=== PATIENT | male | born 1980 | race Caucasian/White ===

== ENCOUNTER 2019-10-22 09:48 | Emergency (ER) | payer BC ==
[~2019-10-22] VITALS: Ht 180.3 cm; Wt 70.9 kg
--- NOTE | 2019-10-22 10:41 | NUR ---
PT HERE WITH C/O EPIGASTRIC ABDOMINAL PAIN THAT STARTED LAST NIGHT. PT STATES NO REAL RELIEF WITH ANYTHING. PT CURRENTLY DENIES NAUSEA/VOMITTING/FEVER/CHILLS. PT AAO X 4, NAD, ROOM AIR, CALL LIGHT WITHIN REACH AND SIDERAIL X [address]. PT DOES STATE DAILY ETOH USE AND LAST DRINK WAS 10/21/2019 AT 1700. PT STATES "I DRINK 4-5 HARD ALCOHOLIC BEVERAGES DAILY AND MORE ON THE WEEKENDS. I FEEL JUST ANXIOUS NOW." VISIBLE TREMORS NOTED TO BILATERAL HANDS AT THIS TIME.
[2019-10-22] MEDS ORDERED: ONDANSETRON 2MG/ML, 2ML IVPush ONE (11:00)
[2019-10-22] MEDS ORDERED: MORPHINE SULFATE 4 MG/ML, 1ML IVPush PRN (11:00)
[2019-10-22] MEDS ORDERED: SODIUM CHLORIDE FLUSH 10ML SYR IVF ONE (11:00)
[2019-10-22] MEDS ORDERED: SODIUM CHLORIDE 0.9% 1,000ML IVBOLUS ONE (11:00)
[2019-10-22 11:03] LABS: BASOPHILS # (AUTO) 0.04 x10^3/uL (0-0.1); BASOPHILS % (AUTO) 0 % (0-1); EOSINOPHILS # (AUTO) 0.01 x10^3/uL (0-0.4); EOSINOPHILS % (AUTO) 0 % (1-7); LYMPHOCYTES # (AUTO) 0.93 x10^3/uL (1-3.4); LYMPHOCYTES % (AUTO) 10 % (22-44); MD NO; MEAN CORPUSCULAR HEMOGLOBIN 33.6 pg (27.5-34.5); MEAN CORPUSCULAR HGB CONC 34.1 g/dL (33.2-36.2); MEAN CORPUSCULAR VOLUME 98.7 fL (81-97); MEAN PLATELET VOLUME 7.9 fL (7.4-10.4); MONOCYTES # (AUTO) 0.68 x10^3/uL (0.2-0.8); MONOCYTES % (AUTO) 7 % (2-9); NEUTROPHILS # (AUTO) 7.91 x10^3/uL (1.8-6.8); NEUTROPHILS % (AUTO) 83 % (42-75); PLATELET COUNT 243 x10^3/uL (130-400); RED BLOOD COUNT 4.42 x10^6/uL (4.38-5.82); RED CELL DISTRIBUTION WIDTH 13.3 % (9.4-14.8)
--- NOTE | 2019-10-22 11:11 | NUR ---
PIV ESTBALISHED BY THIS RN. US AT BEDSIDE.
[2019-10-22] MEDS ORDERED: ONDANSETRON 2MG/ML, 2ML ONE (11:13)
[2019-10-22] MEDS ORDERED: MORPHINE SULFATE 4 MG/ML, 1ML ONE (11:14)
[2019-10-22 11:15] LABS: ALANINE AMINOTRANSFERASE 51 U/L (12-78); ALBUMIN 3.9 g/dL (3.4-5.0); ANION GAP 10 mmol/L (5-15); CALCIUM 9.1 mg/dL (8.5-10.1); CHLORIDE 101 mmol/L (98-107); CREATININE 0.88 mg/dL (0.7-1.3)
--- NOTE | 2019-10-22 11:16 | NUR ---
PT MEDICATED PER ORDER.
[2019-10-22 11:17] LABS: ALKALINE PHOSPHATASE 88 U/L (45-117); BILIRUBIN,TOTAL 1.7 mg/dL (0.2-1.0); TOTAL PROTEIN 7.4 g/dL (6.4-8.2)
[2019-10-22] MEDS ORDERED: MAALOX/HYOSCYAMINE/LIDOCAINE 45 ML BTL ONE (11:23)
--- NOTE | 2019-10-22 11:27 | NUR ---
PT MEDICATED PER ORDER.
[2019-10-22] MEDS ORDERED: MAALOX/HYOSCYAMINE/LIDOCAINE 45 ML BTL PO ONE (11:30)
[2019-10-22 12:12] VITALS: BP 120/77
--- NOTE | 2019-10-22 12:12 | NUR ---
ALL RESULTS BACK AT THIS TIME, CHART UP FOR RECHECK.
--- NOTE | 2019-10-22 12:27 | NUR ---
MD AT BEDSIDE FOR REASSESMENT, PLAN FOR DISCHARGE.
--- NOTE | 2019-10-22 12:54 | NUR ---
Patient/Caregiver given discharge instructions and they have confirmed that they understand the instructions. Patient ambulatory with steady gait.
--- NOTE | 2019-10-22 12:55 | NUR ---
PIV REMOVED TIP INTACT.
== END 2019-10-22 12:56 | disposition home or self-care (01) ==
LOC: ED 11:57
DX: K29.20 Alcoholic gastritis without bleeding (principal); F10.10 Alcohol abuse, uncomplicated; F17.200 Nicotine dependence, unspecified, uncomplicated; Y90.0 Blood alcohol level of less than 20 mg/100 ml
CPT/HCPCS: 36415; 76700; 80053; 83690; 85025; 93005; 96361; 96374; 96375; 99284; J2270; J2405; J7030